=== PATIENT | female | born 1990 | race Caucasian/White ===

== ENCOUNTER 2020-04-02 10:25 | Day surgery (SDC) | payer OTHER ==
[2020-04-02 11:32] VITALS: BMI 35.4
[2020-04-02] MEDS ORDERED: hydrALAZINE 20 MG/ML VIAL SLOW IVP PRN (11:48)
[2020-04-02 12:11] LABS: Hemoglobin 13.2 g/dL (12.0-16.0); Mean Corpuscular HGB CONC 33.8 g/dL (32.0-36.0); Mean Platelet Volume 7.6 fL (7.4-10.4); Platelet Count 207 thou/uL (130-400); RBC Distribution Width 13.1 % (11.5-14.5); Red Blood Cell (RBC) Count 4.56 mill/uL (4.20-5.40)
[2020-04-02 12:21] VITALS: BP 120/80; TEMP 98.2
[2020-04-02 12:27] LABS: Amnisure Internal Control QC ACCEPTABLE (ACCEPTABLE)
[2020-04-02 12:28] LABS: Amnisure Test No Membranes Rupture (No Rupture)
[2020-04-02 12:41] LABS: ALT (SGPT) 22 U/L (8-55); AST (SGOT) 27 U/L (5-34); Albumin 3.3 g/dL (3.5-5.0); Alkaline Phosphatase 162 U/L (40-110); Anion Gap 11 mmol/L (10-20); BUN (Urea Nitrogen) 7 mg/dL (7.0-18.7); Bilirubin, Total 0.6 mg/dL (0.2-1.2); Calc. Creatinine Clearance 212 mL/min (70-130); Calcium 8.9 mg/dL (7.8-10.44); Carbon Dioxide 21 mmol/L (22-29); Chloride 108 mmol/L (98-107); Estimated GFR-MDRD Greater than 90; Globulin 2.8 g/dL (2.4-3.5); Glucose 88 mg/dL (70-105); Potassium 4.4 mmol/L (3.5-5.1); Protein, Total 6.1 g/dL (6.0-8.3); Sodium 136 mmol/L (136-145)
[2020-04-02 12:55] LABS: Creatinine, Urine 142.4 mg/dL (47-110)
[2020-04-02 18:55] LABS: SARS-CoV-2 MS2 Positive; SARS-CoV-2 N Gene Negative; SARS-CoV-2 S Gene Negative; SARS-CoV-2 by NAA Not Detected (NotDetected); SARS-CoV-2 orf1ab Negative
--- NOTE | 2020-04-03 02:37 | SS ---
DATE OF ADMISSION: 04/02/2020 DATE OF DISCHARGE: 04/02/2020 REGULAR PHYSICIAN: Louisa Barron MD EVALUATING PHYSICIAN: Clyde Richardson MD CHIEF COMPLAINT: Elevated blood pressures in clinic. HISTORY PRESENT ILLNESS: Ms. Rivera is a 29-year-old, G4, P2, AB1 with an estimated date of confinement of 04/10/2020, who was seen at [facility] today with elevated blood pressures. She states that her blood pressures are 150s/90s and she had 1+ protein on dipstick there. She denies headache, blurry vision, or right upper quadrant pain. Her care has been with Dr. Barron and she has a scheduled on Wednesday of this week. PAST OB HISTORY: One vacuum extraction for shoulder dystocia followed by primary . PAST MEDICAL HISTORY: Asthma. PAST SURGICAL HISTORY: as above and wisdom teeth extraction. CURRENT MEDICATIONS: 1. vitamins. 2. Inhaler. ALLERGIES: NO KNOWN ALLERGIES. SOCIAL HISTORY: Denies tobacco, alcohol, or drug use. FAMILY HISTORY: Unremarkable. REVIEW OF SYSTEMS: Denies nausea, vomiting, fever, chills, ruptured membranes, vaginal bleeding, headache, right upper quadrant pain, or visual changes. PHYSICAL EXAMINATION: VITAL SIGNS: Blood pressures in triage are 120/80, 124/70, and 130/77 respectively. GENERAL: She is very pleasant and in no acute distress. ABDOMEN: Soft, nontender, and gravid. PELVIC: Pelvic exam by the labor nurse shows the cervix to be 2 cm dilated, 60% effaced with the vertex at the -2. A small amount of discharge was seen. heart rate tracing is reassuring with spontaneous accelerations. No regular uterine contractions were seen. LABORATORY DATA: AmniSure is negative. CBC shows a white count of 8.0, hemoglobin and hematocrit are 13.2 and 39.2, and platelet count is 207,000. BUN and creatinine are 7 and 0.64 respectively. Total bilirubin 0.6 and AST and ALT are 27 and 22 respectively. Her urine protein is 31. Her urine creatinine is 142.4, giving a ratio of 0.21. ASSESSMENT: 1. Thirty-nine and sixth-seventh week intrauterine . 2. No evidence of preeclampsia. PLAN: The patient will be dismissed to home. Preeclampsia precautions were reviewed with her in detail. A COVID swab was done for her prior to her discharge. These findings were related to Dr. Barron by text. Job ID: [id number] MTDD
[2020-04-03] MEDS ORDERED: FLU VACC QS2020-21(6MOS UP)/PF 60 MCG/0.5 ML SYRINGE IM ONE (09:00)
== END 2020-04-02 13:40 | disposition home health service (06) ==
LOC: L&D/OP 10:25
PROVIDERS: ATTEND Student in an Organized Health Care Education/Training Program
DX: O99.891 Other specified diseases and conditions complicating pregnancy (principal); R03.0 Elevated blood-pressure reading, without diagnosis of hypertension; O99.513 Diseases of the respiratory system complicating pregnancy, third trimester; J45.909 Unspecified asthma, uncomplicated; O09.293 Supervision of pregnancy with other poor reproductive or obstetric history, third trimester; O34.219 Maternal care for unspecified type scar from previous cesarean delivery; Z3A.39 39 weeks gestation of pregnancy; Z20.828 Contact with and (suspected) exposure to other viral communicable diseases
CPT/HCPCS: 36415; 80053; 82570; 84112; 84156; 85027; 87635; U0003

== ENCOUNTER 2020-04-05 05:30 | Inpatient (IN) | payer OTHER ==
[2020-04-05] MEDS ORDERED: Promethazine HCl 25 MG/ML VIAL IM PRN ×3 (05:50→09:40)
[2020-04-05] MEDS ORDERED: CEFAZOLIN 2 GM in Premix Bag 1 BAG IVPB SCH (05:50)
[2020-04-05] MEDS ORDERED: Bicitra 30 ML UDCUP PO SCH (05:50)
[2020-04-05] MEDS ORDERED: Ondansetron PF 4 MG/2 ML Vial IVP PRN ×3 (05:50→09:40)
[2020-04-05] MEDS ORDERED: Lactated Ringer's 1,000 ML IV SCH (05:50)
[2020-04-05] MEDS ORDERED: hydrALAZINE 20 MG/ML VIAL SLOW IVP PRN ×2 (05:50→09:40)
[2020-04-05 06:10] VITALS: BMI 35.4
[2020-04-05 06:11] LABS: Hemoglobin 13.3 g/dL (12.0-16.0); Mean Corpuscular HGB CONC 35.3 g/dL (32.0-36.0); Mean Corpuscular Hemoglobin 30.1 pg (27.0-31.0); Mean Corpuscular Volume 85.3 fL (78.0-98.0); Mean Platelet Volume 8.1 fL (7.4-10.4); Platelet Count 213 thou/uL (130-400); RBC Distribution Width 13.4 % (11.5-14.5); Red Blood Cell (RBC) Count 4.41 mill/uL (4.20-5.40); White Blood Cell (WBC) Count 9.8 thou/uL (4.8-10.8)
[2020-04-05 06:50] LABS: Syphilis Antibody Nonreactive (Nonreactive); Syphilis Antibody Index 0.02 S/CO (<1.00 Non-Reactive)
[2020-04-05 06:51] LABS: HBSAg Index 0.17 S/CO (0-0.99); Hep B Surf Ag Non-Reactive S/CO (NonReactive)
[2020-04-05] MEDS ORDERED: Ondansetron PF 4 MG/2 ML Vial ONE (07:16)
[2020-04-05] MEDS ORDERED: Oxytocin 10 UNITS/ML VIAL ONE (07:16)
--- NOTE | 2020-04-05 07:34 | PDOC.LDHP ---
Labor and Delivery H&P Chief complaint: scheduled section HPI: 29yo at 39w2d by LMP here for RCS. No complaints, no sx PIH. Current gestational age (weeks): 39 Due date: 04/10/20 Dating criteria: last menstrual period Grav: 3 Para: 2 Current complications: none Abnormal US findings: No Past Medical History: allergies, asthma Current medications: pre- vitamins, other (albuterol, zyrtec) Previous surgical history: low tranverse CS Allergies/Adverse Reactions: Allergies Allergy/AdvReac Type Severity Reaction Status Date / Time No Known Allergies Allergy Verified 04/02/20 11:17 Social history: none - Physical Exam Vital signs reviewed and normal: yes General: NAD Heart: RRR Lungs: CTAB Abdomen: gravid Extremeties: no edema FHT: category 1 - OB Labs Blood type: A RH: positive Antibody Screen: negative HIV: negative RPR: negative HEPSAg: negative GBS: negative Urine drug screen: negative Rubella: immune
[2020-04-05] MEDS ORDERED: PHENYLEPHRINE-NS 100 MCG/ML 10 ML SYRINGE ONE (07:36)
[2020-04-05] MEDS ORDERED: Ketorolac Tromethamine 30 MG/ML VIAL IVP PRN (08:16)
[2020-04-05] MEDS ORDERED: Naloxone HCl 0.4 mg/ml Vial IVP PRN ×2 (08:16)
[2020-04-05] MEDS ORDERED: Meperidine HCl/PF 25 MG/ML VIAL SLOW IVP PRN (08:16)
[2020-04-05] MEDS ORDERED: Promethazine HCl 25 MG SUPP PR PRN (08:16)
[2020-04-05] MEDS ORDERED: diphenhydrAMINE 50 MG/ML VIAL IVP PRN (08:16)
[2020-04-05] MEDS ORDERED: HYDROmorphone 2 MG/ML VIAL SLOW IVP PRN (08:16)
[2020-04-05] MEDS ORDERED: L&D-Morphine 4 MG/ML VIAL SLOW IVP PRN (08:16)
[2020-04-05] MEDS ORDERED: Ondansetron HCl/PF 4 MG/2 ML Vial IVP PRN (08:16)
--- NOTE | 2020-04-05 08:18 | PDOC.OPDEL ---
OB Operative/Delivery Note Delivery Dr/Surgeon: Beatrice Assist: Light Pre-Delivery Diagnosis: scheduled section Procedure/Post Delivery Dx: repeat low transverse CS Weeks gestation: 39 Anesthesia: spinal - Findings A Sex: male - 1 min: 9 - 5 min: 9 - Additional Findings/Plan Placenta delivered: spontaneous findings: low transverse hysterotomy without extension, normal uterus, normal tubes, normal ovaries Estimated blood loss: 500cc Post delivery plan: routine recovery
[2020-04-05] MEDS ORDERED: Communication Order-Pharmacy FS SCH (08:30)
[2020-04-05] MEDS ORDERED: Ketorolac Tromethamine 30 MG/ML VIAL IVP SCH (08:30)
[2020-04-05] MEDS ORDERED: NS / Oxytocin 40 units/1000ml 1,000 ML ONE (09:11)
[2020-04-05] MEDS ORDERED: Acetaminophen 325 MG TAB PO PRN (09:40)
[2020-04-05] MEDS ORDERED: Bisacodyl 10 MG SUPP PR PRN (09:40)
[2020-04-05] MEDS ORDERED: diphenhydrAMINE 25 MG CAP PO PRN (09:40)
[2020-04-05] MEDS ORDERED: Lanolin Ointment 7 GM TUBE TOP PRN (09:40)
--- NOTE | 2020-04-05 09:51 | OP ---
DATE OF PROCEDURE: 04/05/2020 PREOPERATIVE DIAGNOSES: 1. Intrauterine at 39 weeks and 2 days. 2. Prior section x1, declines trial of labor. POSTOPERATIVE DIAGNOSES: 1. Intrauterine at 39 weeks and 2 days. 2. Prior section x1, declines trial of labor. PROCEDURE PERFORMED: Repeat low-transverse section via Pfannenstiel skin incision. ANESTHESIA: Spinal. AMMUNITION COMPONENTS INSPECTOR SURGEON: Indu Rivera CNM ESTIMATED BLOOD LOSS: 500 mL. COMPLICATIONS: None. DRAINS: Peterson catheter. PATHOLOGY: None. FINDINGS: Male infant, cephalic presentation, clear amniotic fluid. Apgars of 9 and 9. Weight is pending. Hysterotomy without extension, thin lower uterine segment, excellent hemostasis. Normal uterus, ovaries, and tubes bilaterally. DESCRIPTION OF PROCEDURE: The patient was taken to the operating room where spinal anesthesia was obtained without difficulty. The patient was prepped and draped in a sterile fashion in the dorsal supine position with a leftward tilt. After ensuring adequacy of anesthesia, a Pfannenstiel skin incision was made and carried down to the underlying subcutaneous tissue with a knife. Superficial epigastric vessels were cauterized with the Bovie. The fascia was nicked in the midline with the Bovie and carried laterally with the Gamino scissors. The superior aspect of the fascia was tented with 2 Randy's and dissected off the rectus with the Gamino scissors. The inferior aspect of the fascia was tented with 2 Randy's and dissected off the rectus preperitoneally. The peritoneum was bluntly entered into and manually retracted. The Parrish O retractor was placed and the vesicouterine peritoneum was incised with the Metzenbaum's. The lower uterine segment was incised in a transverse fashion and extended with a Barron maneuver. The infant's head was brought to the hysterotomy and delivered atraumatically with fundal pressure. The 's cord was clamped and handed to awaiting pediatric team. Cord blood was obtained and the placenta was allowed to spontaneously deliver. The uterus was exteriorized, cleared of all clots and debris and the posterior cul-de-sac was left out. The uterus was placed back into the abdomen. The hysterotomy was repaired with #1 Monocryl in a running locking fashion. The right edge was oozy at the serosa and a [id number] allowed this to be hemostatic. The pelvis was then irrigated and suctioned. The hemostasis was noted to be excellent. The Parrish O retractor was removed. The rectus muscles were examined and cauterized of any ooziness. The fascia was reapproximated with 0 PDS x2 sutures with excellent reapproximation. The subcutaneous tissue was irrigated and cauterized of any bleeders and reapproximated with a 2-0 plain gut in a running fashion. The skin was closed with 4-0 Monocryl in a subcuticular fashion. Dermabond was applied as well as a pressure dressing. The patient tolerated the procedure well. Sponge, lap, and needle counts correct x2. The patient was taken to recovery room in stable condition. The patient received Ancef 2 g prior to the procedure. Job ID: [id number]
[2020-04-05] MEDS: Simethicone Chewable 80 MG TAB PO PRN (11:04)
[2020-04-05] MEDS: Ibuprofen 800 MG TAB PO SCH ×2 (14:15→20:47)
[2020-04-05] MEDS ORDERED: FLU VACC QS2020-21(6MOS UP)/PF 60 MCG/0.5 ML SYRINGE IM ONE (15:00)
[2020-04-05] MEDS: Docusate Calcium (SURFAK) 240 MG CAP PO SCH (20:47)
[2020-04-05] MEDS ORDERED: Zolpidem Tartrate 5 MG TAB PO PRN (21:00)
[2020-04-05] MEDS ORDERED: HYDROcodone/Acetaminophen 5/325 mg Tablet PO PRN (22:00)
[2020-04-05] MEDS: HYDROcodone/Acetaminophen 5/325 mg Tablet PO PRN (22:31)
[2020-04-06] MEDS ORDERED: Sodium Chloride 0.9% 10 ML ONE (01:23)
[2020-04-06] MEDS: Naloxone HCl 0.4 mg/ml Vial IV PRN ×2 (01:24→01:41)
[2020-04-06] MEDS: Ferrous Sulfate 325 MG TAB PO SCH ×3 (03:16→23:45)
[2020-04-06] MEDS: Ibuprofen 800 MG TAB PO SCH ×3 (04:38→21:42)
[2020-04-06] MEDS: HYDROcodone/Acetaminophen 5/325 mg Tablet PO PRN ×5 (04:59→23:24)
--- NOTE | 2020-04-06 06:13 | PDOC.PP ---
Post Progress Note Post Day #: 1 Subjective: Doing well. States has some dificulty urinating since guerrero was out but was able to void x 3 now. PO intake tolerated: yes Flatus: yes Ambulation: yes Vital Signs (12 hours) Temp Pulse Resp BP 04/06/20 04:39 98.1 F 60 16 114/66 04/05/20 22:49 98.3 F 58 L 16 110/59 L 04/05/20 19:36 98.3 F 66 16 117/74 Weight Weight 226 lb - Physical Examination General: NAD Respiratory: clear to auscultation bilaterally, non-labored breathing Abdominal: + bowel sounds, no distention, appropriately TTP Extremities: negative homans (B) Skin: CS incision dry & intact (sutured, dermabond. Dressing removed by me.), no rash Neurological: no gross focal deficits Psychiatric: A&Ox3, normal affect Result Diagrams: 04/05/20 06:00 Additional Labs: Post Labs Hep Bs Antigen Non-Reactive S/CO (NonReactive) 04/05/20 06:00 Blood Type A POSITIVE 04/05/20 06:00 (1) delivery delivered Code(s): O82 - ENCOUNTER FOR DELIVERY WITHOUT INDICATION Status: Acute - Assessment/Plan POD 1 doing well. Follow urination today. No bladder scan needed yet. Possible DC POD2 as she has other children at home.
[2020-04-06 06:19] LABS: Hemoglobin 11.5 g/dL (12.0-16.0); Mean Corpuscular HGB CONC 34.7 g/dL (32.0-36.0); Mean Corpuscular Hemoglobin 30.2 pg (27.0-31.0); Mean Corpuscular Volume 86.9 fL (78.0-98.0); Mean Platelet Volume 7.6 fL (7.4-10.4); Platelet Count 159 thou/uL (130-400); RBC Distribution Width 13.4 % (11.5-14.5); Red Blood Cell (RBC) Count 3.83 mill/uL (4.20-5.40); White Blood Cell (WBC) Count 8.4 thou/uL (4.8-10.8)
[2020-04-06] MEDS: Prenatal Vitamin 1 TAB PO SCH (08:18)
[2020-04-06] MEDS: Docusate Calcium (SURFAK) 240 MG CAP PO SCH ×2 (08:18→21:42)
[2020-04-06] MEDS ORDERED: Adacel (T-DAP) 0.5 ML SYRINGE IM ONE (09:40)
[2020-04-06] MEDS: Simethicone Chewable 80 MG TAB PO PRN ×2 (10:01→23:27)
[2020-04-07] MEDS: Ibuprofen 800 MG TAB PO SCH (05:40)
[2020-04-07] MEDS: HYDROcodone/Acetaminophen 5/325 mg Tablet PO PRN (05:47)
[2020-04-07] MEDS: Simethicone Chewable 80 MG TAB PO PRN (05:48)
[2020-04-07 07:44] VITALS: BP 118/67; TEMP 97.4
[2020-04-07] MEDS: Docusate Calcium (SURFAK) 240 MG CAP PO SCH (08:46)
[2020-04-07] MEDS: Prenatal Vitamin 1 TAB PO SCH (08:46)
[2020-04-07] MEDS: Ferrous Sulfate 325 MG TAB PO SCH (08:46)
== END 2020-04-07 10:00 | disposition home or self-care (01) | DRG 788 ==
LOC: L&D 05:30 → 3SW 11:19
PROVIDERS: ADMIT Student in an Organized Health Care Education/Training Program; ATTEND Student in an Organized Health Care Education/Training Program
PROC: 10D00Z1 Extraction of Products of Conception, Low, Open Approach (ICD-10-PCS; principal; 2020-04-05)
PROC: 3E02340 Introduction of Influenza Vaccine into Muscle, Percutaneous Approach (ICD-10-PCS; 2020-04-05)
DX: O34.211 Maternal care for low transverse scar from previous cesarean delivery (principal); Z20.828 Contact with and (suspected) exposure to other viral communicable diseases; Z23 Encounter for immunization; Z3A.39 39 weeks gestation of pregnancy; Z37.0 Single live birth
CPT/HCPCS: 36415; 51702; 80053; 82570; 84112; 84156; 85027; 86780; 86850; 86900; 86901; 87340; 87635; 90471; 90662; 99285; G0008; J0690; J1885; J2270; J2310; J2405; U0003